=== PATIENT | male | born 1995 | race African-American/Black ===

== ENCOUNTER 2019-04-22 13:34 | Emergency (ER) | payer MEDICAID ==
[~2019-04-22] VITALS: Ht 180.3 cm; Wt 75.3 kg
[2019-04-22 14:30] VITALS: BP 122/81
[2019-04-22] MEDS ORDERED: KETOROLAC TROMETH 60MG/2ML VIAL IM ONE (14:30)
== END 2019-04-22 15:10 | disposition home or self-care (01) ==
LOC: ER 13:42
DX: S29.012A Strain of muscle and tendon of back wall of thorax, initial encounter (principal); X50.1XXA Overexertion from prolonged static or awkward postures, initial encounter; Y93.B9 Activity, other involving muscle strengthening exercises; Y92.39 Other specified sports and athletic area as the place of occurrence of the external cause; Y99.8 Other external cause status
CPT/HCPCS: 71046; 96372; 99283; J1885

== ENCOUNTER → 2020-05-20 | Emergency (ER) | payer MEDICAID ==
[~2020-05-20] VITALS: Ht 180.3 cm; Wt 74.4 kg
[2020-05-20 01:54] LABS: Basophils # (auto) 0 10 ^3/uL (0-0.2); Basophils % (auto) 0.2 % (0.0-2.0); Eosinophils # (auto) 0.1 10 ^3/uL (0-0.8); Eosinophils % (auto) 1.6 % (0.0-7.0); Hematocrit 42.9 % (41.0-53.0); Hemoglobin 14.6 g/dL (13.5-17.5); Lymphocytes # (auto) 1.9 10 ^3/uL (0.4-5.4); Mean Corpuscular Hemoglobin 29.5 pg (28.0-32.0); Mean Corpuscular Hgb Conc. 33.9 g/dL (32.0-36.0); Mean Corpuscular Volume 86.9 fL (80.0-100.0); Monocytes # (auto) 0.5 10 ^3/uL (0-1.3); Monocytes % (auto) 8.8 % (0.0-12.0); Neutrophils # (auto) 3.6 10 ^3/uL (1.6-8.6); Neutrophils % (auto) 58.4 % (37.0-80.0); Nucleated Red Blood Cells % 0.2 %; Platelet Count (auto) 218 10^3/uL (140-450); Red Blood Cells 4.94 10^6/uL (4.5-5.90); Red Cell Distribution Width 12.3 % (11.8-14.3); White Blood Cell 6.2 10^3/uL (4.4-10.8)
[2020-05-20 02:12] LABS: Albumin 3.6 g/dL (3.4-5.0); BUN/Creatinine Ratio 11.5; Calcium 8.3 mg/dL (8.5-10.1); Potassium 3.5 mmol/L (3.5-5.1)
[2020-05-20 02:14] LABS: Bilirubin, Total 0.5 mg/dL (0.2-1.0); Total Protein 7.8 g/dL (6.4-8.2)
[2020-05-20 02:30] VITALS: BP 124/70
== END | disposition home or self-care (01) ==
LOC: ER 00:20
DX: U07.1 COVID-19 (principal); J01.00 Acute maxillary sinusitis, unspecified; H10.33 Unspecified acute conjunctivitis, bilateral
CPT/HCPCS: 36415; 71045; 80053; 82728; 83605; 85025; 87070; 87804; 87880; 99284; C9803; U0003

== ENCOUNTER 2022-02-20 17:37 | Emergency (ER) | payer MEDICAID ==
[~2022-02-20] VITALS: Ht 180.3 cm; Wt 75.7 kg
[2022-02-20 19:55] VITALS: BP 133/86
== END 2022-02-20 20:13 | disposition home or self-care (01) ==
LOC: ER 17:37
DX: M25.531 Pain in right wrist (principal); K21.9 Gastro-esophageal reflux disease without esophagitis

== ENCOUNTER 2024-03-26 03:48 | Emergency (ER) | payer MEDICAID ==
[~2024-03-26] VITALS: Ht 188 cm; Wt 80.0 kg
[2024-03-26 03:48] VITALS: BP 119/54; TEMP 98
[2024-03-26 04:15] VITALS: PULSE 113; RESP 20; O2SAT 100
[2024-03-26 04:29] LABS: Basophils # (auto) 0 10 ^3/uL (0-0.2); Basophils % (auto) 0.3 % (0.0-2.0); Eosinophils # (auto) 0.2 10 ^3/uL (0-0.8); Eosinophils % (auto) 2.8 % (0.0-7.0); Hematocrit 40.1 % (41.0-53.0); Hemoglobin 13.6 g/dL (13.5-17.5); Lymphocytes # (auto) 4.3 10 ^3/uL (0.4-5.4); Lymphocytes % (auto) 49.9 % (10.0-50.0); Mean Corpuscular Hemoglobin 30.1 pg (28.0-32.0); Mean Corpuscular Hgb Conc. 33.8 g/dL (32.0-36.0); Monocytes # (auto) 0.7 10 ^3/uL (0-1.3); Monocytes % (auto) 8.7 % (0.0-12.0); Neutrophils # (auto) 3.3 10 ^3/uL (1.6-8.6); Neutrophils % (auto) 38.3 % (37.0-80.0); Nucleated Red Blood Cells % 0.1 %; Red Cell Distribution Width 12.1 % (11.8-14.3); White Blood Cell 8.6 10^3/uL (4.4-10.8)
[2024-03-26 04:46] LABS: Albumin 4.9 g/dL (3.2-4.8); Alkaline Phosphatase 55 U/L (46-116); Anion Gap 10 (5-15); Aspartate Aminotransferase 41 U/L (13-40); Bilirubin, Total 0.7 mg/dL (0.2-1.0); Calcium 9.1 mg/dL (8.5-10.1); Carbon Dioxide 24 mmol/L (20-30); Chloride 100 mmol/L (98-107); Glucose 145 mg/dL (74-106); Sodium 134 mmol/L (136-145)
[2024-03-26 04:47] LABS: Total Protein 8.1 g/dL (5.7-8.2)
[2024-03-26 04:50] LABS: Salicylate < 3.0 mg/dL (2.8-20.0)
[2024-03-26 04:53] LABS: Alanine Aminotransferase 19 U/L (7-40); BUN/Creatinine Ratio 5.5 (10.0-20.0); Blood Urea Nitrogen 7 mg/dL (9-23); Potassium 3.6 mmol/L (3.5-5.1)
[2024-03-26 05:06] LABS: Magnesium 1.7 mg/dL (1.6-2.6)
== END 2024-03-26 04:29 | disposition left against medical advice (07) ==
LOC: EDBD 03:48 → EDUNIT# 03:48 → ER 03:48
DX: F10.10 Alcohol abuse, uncomplicated (principal); Z53.21 Procedure and treatment not carried out due to patient leaving prior to being seen by health care provider; Z79.899 Other long term (current) drug therapy
CPT/HCPCS: 36415; 80053; 80320; 80329; 83735; 85025